=== PATIENT | female | born 1995 | race African-American/Black ===

== ENCOUNTER 2021-10-30 22:05 | Emergency (ER) | payer MEDICAID ==
[~2021-10-30] VITALS: Ht 162.6 cm; Wt 100.5 kg
[2021-10-30 23:10] VITALS: BP 124/73
[2021-10-30] MEDS ORDERED: IBUPROFEN 600MG TABLET PO STA (23:13)
== END 2021-10-31 01:42 | disposition left against medical advice (07) ==
LOC: ER 22:05
DX: R51.9 Headache, unspecified (principal)
CPT/HCPCS: 99282

== ENCOUNTER 2022-04-09 13:45 | Emergency (ER) | payer MEDICAID ==
[~2022-04-09] VITALS: Ht 167.6 cm; Wt 100.0 kg
[2022-04-09] MEDS ORDERED: BACITRACIN ZINC OINT UDPKT TOP ONE (15:00)
[2022-04-09] MEDS ORDERED: LIDOCAINE HCL/PF 1% 10 MG/ML 5ML VIAL INFIL ONE (15:00)
[2022-04-09] MEDS ORDERED: ACETAMINOPHEN 500MG TABLET PO ONE (15:00)
[2022-04-09] MEDS ORDERED: TOPUD PO (16:13)
[2022-04-09 17:10] VITALS: BP 100/60
== END 2022-04-09 17:12 | disposition home or self-care (01) ==
LOC: ER 13:45
DX: S61.210A Laceration without foreign body of right index finger without damage to nail, initial encounter (principal); X58.XXXA Exposure to other specified factors, initial encounter; Y93.89 Activity, other specified; Y92.89 Other specified places as the place of occurrence of the external cause; Y99.8 Other external cause status
CPT/HCPCS: 12001; 73140; 99283; J3490

== ENCOUNTER 2024-09-04 20:17 | Emergency (ER) | payer MEDICAID ==
[~2024-09-04] VITALS: Ht 162.6 cm; Wt 110.0 kg
[~2024-09-04 20:17] MED LIST: TOPUD PO
[2024-09-04 20:27] VITALS: O2SAT 99
[2024-09-04 20:58] LABS: CLARITY URINE CLEAR (CLEAR); COLOR URINE DARK YELLOW (YELLOW); GLUCOSE URINE NEGATIVE (NEGATIVE); KETONES URINE TRACE (NEGATIVE); LEUKOCYTE ESTERASE URINE NEGATIVE (NEGATIVE); NITRITE URINE NEGATIVE (NEGATIVE); OCCULT BLOOD URINE TRACE (NEGATIVE); PH URINE 5.5 (4.5-8.0); PROTEIN URINE NEGATIVE (NEGATIVE); SPECIFIC GRAVITY URINE 1.032 (1.005-1.030)
[2024-09-04 21:15] LABS: SQUAMOUS EPITHELIAL CELL URINE 2+ /lpf (RARE/1+)
[2024-09-04 21:16] LABS: BACTERIA URINE TRACE; WBC URINE 0-2 /hpf (0-2)
[2024-09-04] MEDS ORDERED: DOXY100C5 MT (23:24)
[2024-09-04] MEDS ORDERED: METR-167 MT (23:24)
[2024-09-05] MEDS: LIDOCAINE HCL 1% 20ML VIAL INFIL ONE (00:05)
[2024-09-05] MEDS: CEFTRIAXONE SODIUM 500MG VIAL IM ONE (00:05)
[2024-09-05 00:07] VITALS: BP 137/79; PULSE 87; RESP 18; TEMP 36.8; O2SAT 99
== END 2024-09-05 00:08 | disposition home or self-care (01) ==
LOC: ER 20:17
DX: R30.0 Dysuria (principal); Z98.890 Other specified postprocedural states
CPT/HCPCS: 99283; 87491; 87591; 81003; 81025; 96372; J0696